=== PATIENT | female | born 1950 | race African-American/Black ===

== ENCOUNTER → 2016-10-01 | Outpatient (CLI) | payer MEDICARE, MEDICAID | END | disposition home or self-care (01) | LOC: PCVCCLINIC 09:47 | PROVIDERS: ATTEND Internal Medicine | DX: E78.5 Hyperlipidemia, unspecified (principal); I10 Essential (primary) hypertension; R06.09 Other forms of dyspnea | CPT/HCPCS: 80061; 93005; G0463 ==

== ENCOUNTER → 2016-12-28 | Outpatient (CLI) | payer MEDICARE, MEDICAID | END | disposition home or self-care (01) | LOC: PCVCCLINIC 10:34 | PROVIDERS: ATTEND Internal Medicine | DX: E78.5 Hyperlipidemia, unspecified (principal) | CPT/HCPCS: 80061 ==

== ENCOUNTER → 2017-10-14 | Outpatient (CLI) | payer MEDICARE, MEDICAID | END | disposition home or self-care (01) | LOC: PCVCCLINIC 09:54 | DX: I10 Essential (primary) hypertension (principal); E78.5 Hyperlipidemia, unspecified; R06.09 Other forms of dyspnea; F17.200 Nicotine dependence, unspecified, uncomplicated; Z79.82 Long term (current) use of aspirin | CPT/HCPCS: 80061; 93005; G0463 ==